=== PATIENT | female | born 1955 | race Caucasian/White ===

== ENCOUNTER 2018-10-17 18:26 | Emergency (ER) | payer OTHER ==
[~2018-10-17] VITALS: Ht 162.6 cm; Wt 81.7 kg
[~2018-10-17 18:26] MED LIST: Abilify2 MG PO; CHOL10002 PO; METF500C PO; MTX 4%-1% PATC1 EACH TOP; OMEPRAZOLE20 MG PO; OXYC10ER PO; PRAZ2 PO; PREG150 PO; SERT100 PO; STRESS B-COMPL1 EACH PO; TOLT2ER PO
[2018-10-17] MEDS ORDERED: CEPH500 PO (20:00)
== END 2018-10-17 20:17 | disposition home or self-care (01) ==
LOC: ER 18:26
DX: L03.115 Cellulitis of right lower limb (principal); K21.9 Gastro-esophageal reflux disease without esophagitis; M79.7 Fibromyalgia; Z88.6 Allergy status to analgesic agent; Z79.899 Other long term (current) drug therapy; Z87.442 Personal history of urinary calculi; Z87.891 Personal history of nicotine dependence
CPT/HCPCS: 74176; 93971; 99283-25

== ENCOUNTER → 2020-03-02 | Outpatient (CLI) | payer MEDICARE ==
[~2020-03-02] MED LIST changes: +CEPH500 PO
== END | disposition home or self-care (01) ==
LOC: LAB SHORT 08:37 → PLD 08:37
DX: L57.0 Actinic keratosis (principal)
CPT/HCPCS: 88305

== ENCOUNTER 2021-12-07 16:07 | Emergency (ER) | payer MEDICARE ==
[~2021-12-07] VITALS: Ht 162.6 cm; Wt 95.2 kg
[2021-12-07 17:00] LABS: BASOPHILS ABSOLUTE AUTO 0.05 K/mm3 (0.00-0.23); BASOPHILS PERCENT AUTO 1 % (0-2); EOSINOPHILS ABSOLUTE AUTO 0.23 K/mm3 (0.00-0.68); EOSINOPHILS PERCENT AUTO 3 % (0-6); Hematocrit 38.5 % (33.0-51.0); Hemoglobin 12.6 g/dL (11.5-16.0); IMMATURE GRAN ABSOLUTE AUTO 0.02 K/mm3 (0.00-0.10); IMMATURE GRAN PERCENT AUTO 0 % (0-1); LYMPHOCYTES ABSOLUTE AUTO 2.97 K/mm3 (0.84-5.20); LYMPHOCYTES PERCENT AUTO 40 % (21-46); MONOCYTES ABSOLUTE AUTO 0.51 K/mm3 (0.16-1.47); MONOCYTES PERCENT AUTO 7 % (4-13); Mean Corpuscular HGB 27.4 pg (26.0-34.0); Mean Corpuscular HGB Conc 32.7 g/dL (31.5-36.5); Mean Corpuscular Volume 84 fL (80-100); Mean Platelet Volume 9.6 fL (9.1-12.4); NEUTROPHILS ABSOLUTE AUTO 3.71 K/mm3 (1.96-9.15); NEUTROPHILS PERCENT AUTO 49 % (41-73); Platelet Count 213 K/mm3 (150-400); RDW Coefficient Variation 16.9 % (11.7-14.2); RDW Standard Deviation 51.1 fL (35.1-46.3); White Blood Cell Count 7.49 K/mm3 (4.00-11.30)
[2021-12-07] MEDS ORDERED: Percocet 5-3251 EACH (17:09)
[2021-12-07] MEDS ORDERED: ALBU2.5V5 INH (17:09)
[2021-12-07] MEDS ORDERED: CETI5 (17:10)
[2021-12-07] MEDS ORDERED: Cyclobenzaprine5 MG (17:11)
[2021-12-07] MEDS ORDERED: FLUTICASONE-SA1 EAC1 (17:11)
[2021-12-07] MEDS ORDERED: Prednisone10 MG PO (17:11)
[2021-12-07] MEDS ORDERED: OLOPATADINE HCL5 ML (17:11)
[2021-12-07] MEDS ORDERED: PREG50 PO (17:12)
[2021-12-07] MEDS ORDERED: HYDHCL25 (17:12)
[2021-12-07 17:18] LABS: Albumin, Blood 3.6 g/dL (3.4-5.0); Bilirubin, Total 0.2 mg/dL (0.1-1.0); Bun/Creatinine Ratio 11.7 (12.0-20.0); Creatinine, Blood 0.94 mg/dL (0.40-1.00); Globulin, Blood 3.7 g/dL (2.2-4.0); Potassium, Blood 3.8 mmol/L (3.5-5.5); Total Protein, Blood 7.3 g/dL (6.4-8.2)
== END 2021-12-07 18:28 | disposition home or self-care (01) ==
LOC: ER 16:07
PROVIDERS: Student in an Organized Health Care Education/Training Program
DX: R29.898 Other symptoms and signs involving the musculoskeletal system (principal); R13.10 Dysphagia, unspecified; K21.9 Gastro-esophageal reflux disease without esophagitis; Z88.6 Allergy status to analgesic agent; Z79.899 Other long term (current) drug therapy; Z79.84 Long term (current) use of oral hypoglycemic drugs; Z87.891 Personal history of nicotine dependence
CPT/HCPCS: 70450; 80053; 85025; 99284-25

== ENCOUNTER 2024-02-15 07:58 | Inpatient (IN) | payer OTHER ==
[~2024-02-15] VITALS: Ht 162.6 cm; Wt 97.5 kg
[~2024-02-15 07:58] MED LIST changes: +ALBU2.5V5 INH; +CETI5; +Cyclobenzaprine5 MG; +FLUTICASONE-SA1 EAC1; +HYDHCL25; +OLOPATADINE HCL5 ML; +PREG50 PO; +Percocet 5-3251 EACH; +Prednisone10 MG PO
[2024-02-15 09:29] LABS: BASOPHILS ABSOLUTE AUTO 0.06 K/mm3 (0.00-0.23); BASOPHILS PERCENT AUTO 0 % (0-2); EOSINOPHILS ABSOLUTE AUTO 0.01 K/mm3 (0.00-0.68); EOSINOPHILS PERCENT AUTO 0 % (0-6); Hematocrit 44.5 % (33.0-51.0); Hemoglobin 16.3 g/dL (11.5-16.0); IMMATURE GRAN PERCENT AUTO 1 % (0-1); LYMPHOCYTES ABSOLUTE AUTO 2.53 K/mm3 (0.84-5.20); LYMPHOCYTES PERCENT AUTO 12 % (21-46); MONOCYTES ABSOLUTE AUTO 1.39 K/mm3 (0.16-1.47); MONOCYTES PERCENT AUTO 7 % (4-13); Mean Corpuscular HGB 30.3 pg (26.0-34.0); Mean Corpuscular HGB Conc 36.6 g/dL (31.5-36.5); Mean Corpuscular Volume 83 fL (80-100); Mean Platelet Volume 10.2 fL (9.1-12.4); NEUTROPHILS ABSOLUTE AUTO 16.24 K/mm3 (1.96-9.15); NEUTROPHILS PERCENT AUTO 80 % (41-73); Platelet Count 318 K/mm3 (150-400); RDW Coefficient Variation 13.1 % (11.7-14.2); RDW Standard Deviation 39.1 fL (35.1-46.3); Red Blood Cell Count 5.38 M/mm3 (3.80-5.20); White Blood Cell Count 20.33 K/mm3 (4.00-11.30)
[2024-02-15 09:46] LABS: Albumin, Blood 3.6 g/dL (3.4-5.0); Albumin/Globulin Ratio 0.8 (0.8-1.8); Bilirubin, Total 1.2 mg/dL (0.1-1.0); Calcium, Blood 9.7 mg/dL (8.5-10.1); Creatinine, Blood 0.68 mg/dL (0.40-1.00); Globulin, Blood 4.4 g/dL (2.2-4.0); Potassium, Blood 2.8 mmol/L (3.5-5.5)
[2024-02-15] MEDS ORDERED: Ampicillin Sod/Sulbactam Sod 3 GM in NS 100 ML IV ONE (12:05)
[2024-02-15] MEDS ORDERED: MetroNIDAZOLE 500MG/NS 100 ml 100 ML IV ONE (12:10)
[2024-02-15 13:01] LABS: Source, Urine Clean Catch
[2024-02-15 13:10] LABS: Appearance, Urine Clear (Clear); Bilirubin, Urine Neg (Neg); Blood, Urine Neg (Neg); Color, Urine Yellow (P-Yellow); Glucose Qualitative, Urine Neg (Neg); Ketones, Urine Neg (Neg); Leukocyte Esterase, Urine Neg (Neg); Nitrite, Urine Neg (Neg); Protein, Urine 1+ (Neg); Specific Gravity, Urine 1.015 (1.003-1.022); Urobilinogen, Urine 2+ (Normal); pH, Urine 6.5 (5.0-8.0)
[2024-02-15] MEDS ORDERED: FLU VACC TS2024-25(6MOS UP)/PF 45 MCG/0.5 ML SYRINGE IM SCH (13:20)
[2024-02-15] MEDS ORDERED: FentaNYL Citrate 50 MCG/ML 2 ML Injection IV PRN (13:20)
[2024-02-15 15:13] VITALS: BP 127/96
[2024-02-15] MEDS ORDERED: Insulin Human Lispro 100 Units/ML 3ML Syringe SC SCH (16:30)
[2024-02-15] MEDS ORDERED: CYCL10 PO (16:47)
[2024-02-15] MEDS ORDERED: LIDO700A20 TOP (16:48)
[2024-02-15] MEDS ORDERED: Prinivil10 MG PO (16:49)
[2024-02-15 20:29] VITALS: BP 154/89
[2024-02-15] MEDS ORDERED: Sertraline HCl 100 MG Tab PO SCH (23:20)
--- NOTE | 2024-02-16 04:34 | NUR ---
SHIFT SUMMARY PATIENT WAS AN ADMIT ON DAY SHIFT. NO ACUTE CHANGES. AXOX 4 AND BEDREST. DENIES CHEST PAIN, SOB, AND N/V. VSS/AFEBRILE. PIV INTACT. CBG 138. GANIES IN PLACE FOR RETENTION. REPORTS MINIMAL FLATULENCE. DID NOT WANT TO TRY ENEMA UNTIL TODAY PER YESTERDAY'S DAY RN, HAVING ANXIETY. HOSPITALIST ADDED HER ZOLOFT 200 MG BACK IN TO EMAR PER PATIENT REQUEST. REPORTED LEFT HIP PAIN X ONE AND IV FENTANYL 25 MCG GIVEN PER EMAR. CALL LIGHT IN REACH. BED IN LOWEST POSITION. WILL CONTINUE TO MONITOR UNTIL DAY SHIFT NURSE ASSUMES CARE.
[2024-02-16 05:00] VITALS: BP 150/93
[2024-02-16 05:51] LABS: Hematocrit 42.5 % (33.0-51.0); Hemoglobin 15.3 g/dL (11.5-16.0); Mean Corpuscular HGB 30.5 pg (26.0-34.0); Mean Corpuscular Volume 85 fL (80-100); Mean Platelet Volume 10.1 fL (9.1-12.4); Platelet Count 255 K/mm3 (150-400); RDW Coefficient Variation 13.2 % (11.7-14.2); RDW Standard Deviation 40.6 fL (35.1-46.3); Red Blood Cell Count 5.02 M/mm3 (3.80-5.20); White Blood Cell Count 14.49 K/mm3 (4.00-11.30)
[2024-02-16 06:24] LABS: Magnesium, Blood 2.2 mg/dL (1.6-2.4); Thyroxine (T4) 10.3 ug/dL (4.8-13.9)
[2024-02-16 06:30] LABS: Albumin, Blood 3.2 g/dL (3.4-5.0); Anion Gap 13 mmol/L (3-11); Blood Urea Nitrogen 14 mg/dL (8-24); Bun/Creatinine Ratio 23.7 (12.0-20.0); CO2, Blood 24 mmol/L (21-32); Calcium, Blood 9.2 mg/dL (8.5-10.1); Chloride, Blood 101 mmol/L (98-108); Creatinine, Blood 0.59 mg/dL (0.40-1.00); Glomerular Filtration Rate 98 (60-); Glucose, Blood 177 mg/dL (70-99); Phosphorus, Blood 3.1 mg/dL (2.5-4.9); Potassium, Blood 2.5 mmol/L (3.5-5.5); Sodium, Blood 135 mmol/L (136-145); Thyroid Stimulating Hormone 0.999 uIU/mL (0.360-4.800)
[2024-02-16 07:53] VITALS: BP 151/87
[2024-02-16] MEDS ORDERED: Potassium Chloride 20 MEQ TabCR PO ONE (08:05)
[2024-02-16] MEDS ORDERED: Ampicillin Sod/Sulbactam Sod 3 GM in NS 100 ML IV SCH (08:38)
[2024-02-16] MEDS ORDERED: Lactobacil 2-S.Thermo-Bifido 1 1 Cap PO SCH (09:00)
[2024-02-16] MEDS ORDERED: NS 250 ML IV PRN (10:10)
[2024-02-16] MEDS ORDERED: OxyCODONE 5 mg/Acetamin 325 mg TABLET PO PRN (10:55)
[2024-02-16] MEDS ORDERED: Glycerin Adult Supp 1 EA PR PRN (10:55)
[2024-02-16 16:01] VITALS: BP 171/104
[2024-02-16 16:11] VITALS: BP 149/86
--- NOTE | 2024-02-16 18:38 | NUR ---
PATIENT IS ALERT AND ORIENTED AND COOPERATIVE WITH CARE. PATIENT C/O LEFT HIP PAIN, MEDICATED PER EMAR. PATIENT IS STILL IMPACTED WITH ONLY A SMALL BM TODAY. SOAP SUDS ENEMA GIVEN THIS MORNING THEN A GLYCERIN SUPPOSITIY. ANOTHER SOAP SUDS ENEMA WAS ATTEMPTED WITHOUT SUCCESS. PATIENT DID NOT TOLERATE DIGITAL DISIMPACTION. HER HIP PAIN STOPS HER FROM BEARING DOWN OR SITTING ON THE BSC FOR TOO LONG. DR. KENDALL NOTIFIED. WILL CONTINUE TO MONITOR
[2024-02-16 19:59] VITALS: BP 155/91
[2024-02-16] MEDS ORDERED: OxyCODONE HCL 10 MG TABCR PO SCH (21:00)
[2024-02-17] VITALS (13 sets, daily range): BP systolic 113–176; BP diastolic 66–95
--- NOTE | 2024-02-17 04:08 | NUR ---
SHIFT SUMMARY PATIENT HAD NO ACUTE CHANGES. NO BM THIS SHIFT. AXOX 4 AND ONE ASSIST TO BSC. REPORTS CAN'T SIT ON COMMODE TOO LONG WITH HIP PAIN. DENIES CHEST PAIN, SOB, AND N/V. VSS/AFEBRILE. CBG 190. PIV INTACT. IV ABX INFUSED. GAINES PATENT AND DRAINING TO GRAVITY FOR RETENTION. HEATING PAD PROVIDED PER PATIENT REQUEST. CALL LIGHT IN REACH. BED IN LOWEST POSITION. WILL CONTINUE TO MONITOR UNTIL DAY SHIFT NURSE ASSUMES CARE.
[2024-02-17 05:20] LABS: Hematocrit 41.1 % (33.0-51.0); Hemoglobin 14.6 g/dL (11.5-16.0); Mean Corpuscular HGB 30.1 pg (26.0-34.0); Mean Corpuscular HGB Conc 35.5 g/dL (31.5-36.5); Mean Corpuscular Volume 85 fL (80-100); Mean Platelet Volume 10.3 fL (9.1-12.4); Platelet Count 259 K/mm3 (150-400); RDW Coefficient Variation 13.2 % (11.7-14.2); RDW Standard Deviation 40.8 fL (35.1-46.3); Red Blood Cell Count 4.85 M/mm3 (3.80-5.20); White Blood Cell Count 11.24 K/mm3 (4.00-11.30)
[2024-02-17 05:40] LABS: Anion Gap 11 mmol/L (3-11); Blood Urea Nitrogen 15 mg/dL (8-24); Bun/Creatinine Ratio 23.8 (12.0-20.0); CO2, Blood 24 mmol/L (21-32); Calcium, Blood 8.9 mg/dL (8.5-10.1); Chloride, Blood 104 mmol/L (98-108); Creatinine, Blood 0.63 mg/dL (0.40-1.00); Glomerular Filtration Rate 96 (60-); Glucose, Blood 164 mg/dL (70-99); Magnesium, Blood 2.2 mg/dL (1.6-2.4); Phosphorus, Blood 3.2 mg/dL (2.5-4.9); Potassium, Blood 2.8 mmol/L (3.5-5.5); Sodium, Blood 136 mmol/L (136-145)
[2024-02-17] MEDS ORDERED: Potassium Chloride 40 MEQ in NS 250 ML IV ONE (08:25)
[2024-02-17] MEDS ORDERED: Lactated Ringer's 1,000 ML IV SCH (10:20)
[2024-02-17] MEDS ORDERED: propofoL 40 ML IV ONE (11:31)
[2024-02-17] MEDS ORDERED: propofoL 20 ML IV ONE (11:48)
[2024-02-17] MEDS ORDERED: Magnesium Hydroxide Conc 10 ML UDC PO PRN (12:15)
[2024-02-17] MEDS ORDERED: FentaNYL Citrate 50 MCG/ML 2 ML Injection ONE (12:23)
--- NOTE | 2024-02-17 14:39 | NUR ---
REPORT RECEIVED AND VERIFIED PT BEING PLACED NPO FOR POSSIBLE SX, PT HAVING ABD PAIN DUE TO IMPACTION, PT MEDICATED FOR PAIN, POTASSIUM INFUSING AND PT LUCIAN WELL. PT TAKEN DOWN AT 1115
--- NOTE | 2024-02-17 14:44 | NUR ---
1330 PT RETURNED A/O VSS DID VERY WELL AND C/O PAIN TO LEFT HIP. PT MEDICATED PER APR. POST OP VITALS IN PROGRESS
[2024-02-17] MEDS ORDERED: Polyethylene Glycol 3350 17 gm PO SCH (21:00)
--- NOTE | 2024-02-18 03:07 | NUR ---
STRETCHER AND DRIER SUMMARY VSS. ALERT AND ORIENTED. IV ANTIBIOTICS INFUSING - SE MAR FOR DETAILS. HAS NOT HAD BM OF THIS WRITING. UP WITH ASSIST NEEDED TO COMMODE. GAINES DRAINING. HAS BEEN RESTING QUIETLY WITH FEW COMPLAINTS. CALL LIGHT IN REACH, RAILS UP X 2 AND BED IN LOW POSITION FOR SAFETY. ABLE TO REPOSITION SELF IN BED FOR COMFORT AND SKIN MAINTENANCE. WILL CONTINUE TO MONITOR
[2024-02-18 05:10] VITALS: BP 166/94
[2024-02-18 07:28] VITALS: BP 162/93
[2024-02-18] MEDS ORDERED: Magnesium Hydroxide Conc 10 ML UDC PO SCH (09:00)
--- NOTE | 2024-02-18 16:27 | NUR ---
PT AOX4 AND COOPERTIVE OF CARE. PT REPORTING FEELING RUN DOWN. PT TREATED FOR ABD PAIN PER EMAR. NO BM AT THIS TIME WILL CONINTUE TO MONITOR. CALL LIGHT WITHIN REACH AND SITTING UP IN CHAIR.NO DISTRESS NOTED.
[2024-02-18 16:32] VITALS: BP 136/108
[2024-02-18 19:05] VITALS: BP 143/101
[2024-02-19 03:17] VITALS: BP 157/89
--- NOTE | 2024-02-19 03:37 | NUR ---
RESEARCH CENTER DIRECTOR SUMMARY BP ELEVATED BUT OTHERWISE VSS. ALERT AND ORIENTED. VOICED "PASSED GAS" WHEN ATTEMPTING TO HAVE BM. VOIDED 600 CC AT THIS TIME AFTER A FEW ATTEMPTS EARLIER (POST CATH REMOVAL ON DAY SHIFT). COOPERATIVE WITH CARE. DENIES DISTRESS. AFFECT CHEERFUL WHEN SPEAKING WITH STAFF. HAS BEEN RESTING QUIETLY WITH FEW INTERRUPTIONS. UP/OOB WITH ONE ASSISST, OTHERWISE ABLE TO REPOSITION SELF IN BED WITHOUT ASSIST. HPB ELEVATED FOR RESEP COMFORT. CALL LIGHT IN REACH, RAILS UP X 2 AND BED IN LOW POSITION FOR SAFETY. STOOL SOFTENERS TOLERATED - SEE MAR FOR DETAILS. WILL CONTINUE TO MONITOR
[2024-02-19 05:30] LABS: Hematocrit 39.1 % (33.0-51.0); Hemoglobin 13.7 g/dL (11.5-16.0); Mean Corpuscular HGB 30.2 pg (26.0-34.0); Mean Corpuscular Volume 86 fL (80-100); Mean Platelet Volume 9.2 fL (9.1-12.4); Platelet Count 211 K/mm3 (150-400); RDW Coefficient Variation 13.2 % (11.7-14.2); RDW Standard Deviation 41.3 fL (35.1-46.3); Red Blood Cell Count 4.53 M/mm3 (3.80-5.20); White Blood Cell Count 7.39 K/mm3 (4.00-11.30)
[2024-02-19 07:14] VITALS: BP 147/84
[2024-02-19 08:08] LABS: Albumin, Blood 2.7 g/dL (3.4-5.0); Anion Gap 10 mmol/L (3-11); Blood Urea Nitrogen 14 mg/dL (8-24); Bun/Creatinine Ratio 19.1 (12.0-20.0); CO2, Blood 26 mmol/L (21-32); Chloride, Blood 105 mmol/L (98-108); Creatinine, Blood 0.73 mg/dL (0.40-1.00); Glomerular Filtration Rate 89 (60-); Glucose, Blood 151 mg/dL (70-99); Phosphorus, Blood 3.1 mg/dL (2.5-4.9); Potassium, Blood 3.4 mmol/L (3.5-5.5); Sodium, Blood 138 mmol/L (136-145)
[2024-02-19] MEDS ORDERED: Potassium Chloride 20 MEQ TabCR PO ONE (13:15)
[2024-02-19 15:34] VITALS: BP 141/83
[2024-02-19] MEDS ORDERED: Lactulose 20 GM/30 ML UDC PO ONE (16:00)
--- NOTE | 2024-02-19 17:57 | NUR ---
PT IS ALERT AND ORIENTED, VSS, RA, NON-TELE. PAIN CONTROLLED WITH SCHEDULED OXYCONTIN AND PRN PERCOCET. SBA-1PA TO BSC. NO BM TODAY, ACTIVE BOWEL SOUNDS, PASSING GAS, ABDOMEN DISTENDED. 1X ORDER OF LACTULOSE GIVEN THIS AFTERNOON. PT ORAL INTAKE IS INCREASING. INSULIN COVERAGE WAS NOT INDICATED THIS SHIFT. PT ABLE TO MAKE NEEDS KNOWN, CALL LIGHT IN REACH, BED IN LOW POSITION.
[2024-02-19 19:49] VITALS: BP 150/89
--- NOTE | 2024-02-20 04:17 | NUR ---
SHIFT SUMMARY PATIENT HAD NO ACUTE CHANGES. AXOX 4 AND ONE ASSIST TO BSC. INCONTINENT AT TIMES OF URINE. SCHEDULE OXYCONTIN FOR LEFT HIP PAIN. CBG 139. SCHEDULE BOWEL MEDICATION. NO BM THIS SHIFT. DENIES CHEST PAIN, SOB, AND N/V. VSS/AFEBRILE. CALL LIGHT IN REACH. BED IN LOWEST POSITION. WILL CONTINUE TO MONITOR UNTIL DAY SHIFT NURSE ASSUMES CARE.
[2024-02-20 05:11] VITALS: BP 153/85
[2024-02-20 06:34] LABS: Bun/Creatinine Ratio 14.9 (12.0-20.0); Calcium, Blood 9.6 mg/dL (8.5-10.1); Creatinine, Blood 0.88 mg/dL (0.40-1.00); Magnesium, Blood 2.3 mg/dL (1.6-2.4); Potassium, Blood 4.6 mmol/L (3.5-5.5)
[2024-02-20 07:31] VITALS: BP 150/88
[2024-02-20] MEDS ORDERED: Peg/Electrolytes 4,000 ML BTL PO ONE (10:00)
[2024-02-20 15:59] VITALS: BP 155/94
[2024-02-20] MEDS ORDERED: Hydrocortisone 2.5% Cream 30 gm Tube PR SCH (16:00)
[2024-02-20] MEDS ORDERED: Albuterol 2.5 MG/3 ML VIAL INH PRN (16:25)
[2024-02-20] MEDS ORDERED: Cyclobenzaprine HCl 10 MG Tab PO PRN (16:25)
[2024-02-20] MEDS ORDERED: Ketotifen Fumarate Opth Soln BOTHEYES PRN (16:40)
--- NOTE | 2024-02-20 17:00 | NUR ---
SHIFT SUMMARY PT A&OX4. PT ADMITTED DUE TO STERCORAL COLITIS. PT EATS ADEQUATE. REPORTS NO N/V. PT REPORTS HIP AND ABD PAIN. PT RECEIVES SCHEDULED OXY AND PRN PERCOCET FOR PAIN MANAGEMENT, PT LAST REPORTED A 4/10 PAIN. PT USING HEATING PAD FOR COMFORT. PT REPORTS PASSING GAS. PT DRANK HALF GLYCERIN DURING SHIFT. PT HAS BSC NEARBY, PT HAD BOWEL MOVEMENT ON SHIFT. BLOOD PRESSURE ELEVATED, DR. BEAUCHAMP RESTARTED HOME MEDS. PT SPO2 IS 93%. GLUCOSE HAS BEEN STABLE. PT ON ROOM AIR. PT HAS SAT IN CHAIR FOR SHIFT. CALL LIGHT IN REACH, PT REPORTS FRIEND VISITOR PRESENT. PT CALLS ADEQUATE. PT REPORTED AN INCREASE IN HEMORRHOID SYMPTOMS TODAY, NOTIFIED.
[2024-02-20 20:02] VITALS: BP 152/99
[2024-02-20] MEDS ORDERED: Pregabalin 50 MG Capsule PO SCH (21:00)
[2024-02-20] MEDS ORDERED: Ketotifen Fumarate Opth Soln BOTHEYES SCH (21:00)
[2024-02-21 03:48] VITALS: BP 143/85
--- NOTE | 2024-02-21 04:20 | NUR ---
SHIFT SUMMARY PATIENT HAD NO ACUTE CHANGES. AXOX 4 AND ONE ASSIST TO BSC. REPORTED SHE HAD MULTIPLE BM'S ON DAY SHIFT AFTER GOLYTELY. SCHEDULE OXYCONTIN FOR CHRONIC HIP PAIN, DENIES CHEST PAIN, SOB, AND N/V. VSS/AFEBRILE. CBG 144. SLEPT MOST OF THE SHIFT. CALL LIGHT IN REACH. BED IN LOWEST POSITION. WILL CONTINUE TO MONITOR UNTIL DAY SHIFT NURSE ASSUMES CARE.
[2024-02-21] MEDS ORDERED: Omeprazole 20 MG CapCR PO SCH (06:00)
[2024-02-21 07:24] VITALS: BP 149/92
[2024-02-21] MEDS ORDERED: Lisinopril 10 MG Tab PO SCH (09:00)
[2024-02-21] MEDS ORDERED: Lidocaine 4% 1 Patch TOP SCH (09:00)
[2024-02-21] MEDS ORDERED: ARIPiprazole 2 MG Tablet PO SCH (09:00)
[2024-02-21] MEDS ORDERED: DOCU100 PO (10:46)
[2024-02-21] MEDS ORDERED: HYDCOR2.5C PR (10:46)
[2024-02-21] MEDS ORDERED: DULCOLAX400 MG/5 M PO (10:47)
[2024-02-21] MEDS ORDERED: MIRALAX17 GM PO (10:47)
--- NOTE | 2024-02-21 14:16 | NUR ---
DISCHARGE NOTE PT DISCHARGED HOME AT 1415. PT PROVIDED W/ VERBAL AND WRITTEN INSTRUCTIONS AND REPORTED UNDERSTANDING. PT A&OX4, VSS, AMB W/ FWW, TOLERATING PO, VOIDING, AND PAIN MANAGED PER EMAR. BELONGINGS WERE RETURNED AND PT ESCOURTED OUT VIA W/C BY WILLIE BALTAZAR AND PT'S FRIEND.
== END 2024-02-21 14:25 | disposition home or self-care (01) | DRG 392 ==
LOC: ER 07:58 → MEDS 13:18 → ENPENDDIS 02-21 10:37 → MEDS 02-21 14:25
PROVIDERS: Emergency Medicine; Internal Medicine; Physician Assistant; ADMIT Internal Medicine
DX: K52.89 Other specified noninfective gastroenteritis and colitis (principal); F11.20 Opioid dependence, uncomplicated; K56.41 Fecal impaction; R33.9 Retention of urine, unspecified; G89.29 Other chronic pain; G70.00 Myasthenia gravis without (acute) exacerbation; M16.12 Unilateral primary osteoarthritis, left hip; E11.40 Type 2 diabetes mellitus with diabetic neuropathy, unspecified; H54.61 Unqualified visual loss, right eye, normal vision left eye; K21.9 Gastro-esophageal reflux disease without esophagitis; K42.9 Umbilical hernia without obstruction or gangrene; Z90.710 Acquired absence of both cervix and uterus; Z88.5 Allergy status to narcotic agent; Z88.2 Allergy status to sulfonamides; Z88.8 Allergy status to other drugs, medicaments and biological substances; Z88.1 Allergy status to other antibiotic agents; Z91.018 Allergy to other foods; Z79.899 Other long term (current) drug therapy; Z79.84 Long term (current) use of oral hypoglycemic drugs; T40.605A Adverse effect of unspecified narcotics, initial encounter; Z87.442 Personal history of urinary calculi; Z87.891 Personal history of nicotine dependence
CPT/HCPCS: 36415; 51702; 51798; 74018; 74177; 80048; 80053; 80069; 82947; 83690; 83735; 84436; 84443; 85025; 85027; 94760; 96365-59; 96375; 97110; 97110-CQ; 97116; 97116-CQ; 97162; 97530; 99285-25; A9270; J0295; J2704; J3010; J3480; J7050; J7120; Q9967